=== PATIENT | female | born 1955 | race Caucasian/White ===

== ENCOUNTER → 2019-03-25 12:06 | Outpatient (CLI) | payer BC | END | disposition home or self-care (01) | LOC: D.CT 12:06 | PROVIDERS: ATTEND Nurse Practitioner Family | DX: G45.9 Transient cerebral ischemic attack, unspecified (principal) ==

== ENCOUNTER 2019-07-09 09:00 | Outpatient (CLI) | payer BC | END 2019-07-09 10:00 | disposition home or self-care (01) | LOC: D.MAMMO 09:00 | PROVIDERS: ATTEND Nurse Practitioner Family | DX: Z12.31 Encounter for screening mammogram for malignant neoplasm of breast (principal) ==

== ENCOUNTER 2019-07-22 09:00 | Outpatient (CLI) | payer BC | END 2019-07-22 10:00 | disposition home or self-care (01) | LOC: D.MAMMO 09:00 | PROVIDERS: ATTEND Nurse Practitioner Family | DX: R92.8 Other abnormal and inconclusive findings on diagnostic imaging of breast (principal) ==